=== PATIENT | female | born 1990 | race Caucasian/White ===

== ENCOUNTER → 2023-08-17 | Outpatient (CLI) | payer OTHER ==
[2023-08-17 15:21] VITALS: BP 128/78; PULSE 104; RESP 16; TEMP 98.8; BMI 31.2
--- NOTE | 2023-08-17 15:23 | P.BASOAP ---
Subjective Progress Note Date: 08/17/23 Principal diagnosis: Dysphagia 34-year-old female known to our service. Patient underwent laparoscopic banding many years ago. Patient's initial weight was 260. Her lowest weight was 168. Currently she is at 188. Patient states she has had episodes of vomiting about 5 out of every 7 days for the last 6 years. Patient was last seen and worked up at [facility]. She says that she had most of her fluid removed back then. She thinks she had scopes and esophagrams performed then. No recent workup. Patient unsure how much fluid is in the band currently. Patient also has complaints of gallbladder issues. Says she has known gallstones. Patient states she has had intermittent epigastric pain radiating to the back. Patient is interested in cholecystectomy. Patient states her family history is very strong for gallbladder disease. Objective - Vital Signs Vital signs: Vital Signs Temp 98.8 F 08/17/23 14:49 Pulse 104 H 08/17/23 14:49 Resp 16 08/17/23 14:49 BP 128/78 08/17/23 14:49 Pulse Ox FiO2 Intake & Output 08/16/23 08/17/23 08/17/23 18:59 06:59 18:59 Weight 85.275 kg - Exam Abdomen: Soft, nontender, nondistended Assessment/Plan (1) Dysphagia Narrative/Plan: 33-year-old female with dysphagia and vomiting. Will empty the patient's band. Will check esophagram. Will try to obtain records regarding patient's gallbladder issues. Patient is interested in possible band removal. Will see how her upper GI looks and how her symptoms change after emptying her band. May consider combined laparoscopic cholecystectomy with Lap-Band removal. Will contact patient once esophagram reviewed. Plan: Date: 08/17/23 Initial Weight: 85.275 kg Initial BMI: 31.2 Current Weight: 85.275 kg Current BMI: 31.2 Type of Surgery: Adjustable Gastric Banding Total Volume in Band: Previous Volume: Volume Removed: Volume Added: Band Size:
== END | disposition home or self-care (01) ==
LOC: BARWHC3 14:42
PROVIDERS: ATTEND Surgery
DX: E66.01 Morbid (severe) obesity due to excess calories (principal); R13.10 Dysphagia, unspecified; R11.10 Vomiting, unspecified; Z68.31 Body mass index [BMI] 31.0-31.9, adult; Z98.84 Bariatric surgery status
CPT/HCPCS: 43999